=== PATIENT | female | born 1950 | race Caucasian/White ===

== ENCOUNTER 2017-02-11 15:57 | Outpatient (CLI) ==
[2013-10-19 04:03] VITALS: BMI 39.1
== END 2017-02-11 15:58 | disposition home or self-care (01) ==
LOC: AMBL 15:57
DX: R40.4 Transient alteration of awareness (principal); R06.9 Unspecified abnormalities of breathing; R11.10 Vomiting, unspecified; I48.91 Unspecified atrial fibrillation; I95.9 Hypotension, unspecified; H57.04 Mydriasis; Z98.890 Other specified postprocedural states